=== PATIENT | female | born 1985 | race Two or more races ===

== ENCOUNTER 2020-08-20 10:00 | Emergency (ER) | payer OTHER ==
[~2020-08-20] VITALS: Ht 154.9 cm; Wt 64.5 kg
[2020-08-20 10:10] VITALS: BP 111/78
[2020-08-20] MEDS ORDERED: MECL25TA31 PO (10:10)
== END 2020-08-20 11:41 | disposition home or self-care (01) ==
LOC: EEVIPCON 10:02 → EMS 10:02
DX: Z11.1 Encounter for screening for respiratory tuberculosis (principal)
CPT/HCPCS: 71045-TC